=== PATIENT | female | born 1970 | race Caucasian/White ===

== ENCOUNTER → 2017-05-31 | Outpatient (CLI) | payer BC | END | disposition home or self-care (01) | LOC: C.PAPS 12:47 | PROVIDERS: ATTEND Family Medicine | DX: Z12.72 Encounter for screening for malignant neoplasm of vagina (principal) ==

== ENCOUNTER → 2017-06-02 | Outpatient (CLI) | payer BC ==
--- NOTE | 2017-06-02 14:23 | DIAGNOSTIC IMAGING REPORT ---
SOFT TISSUE NECK ULTRASONOGRAPHY CLINICAL HISTORY: ENLARGED LYMPH NODES COMPARISON STUDY: No previous studies for comparison. FINDINGS: There is a 6 mm cyst versus hypoechoic lymph node superior to the right lobe of the thyroid. There are small architectural unremarkable cervical lymph nodes identified. IMPRESSION: 1. 6 mm cyst versus hypoechoic lymph node superior to the right lobe of the thyroid 2. Additional normal sized architecturally normal cervical lymph nodes were visualized Electronically signed by: Dwayne Cintron M.D. 06/02/2017 2:22 PM Dictated Date/Time: 06/02/2017 2:20 PM
== END | disposition home or self-care (01) ==
LOC: C.ULTR 12:13
PROVIDERS: ATTEND Family Medicine
DX: R59.0 Localized enlarged lymph nodes (principal)

== ENCOUNTER → 2017-06-12 | Outpatient (CLI) | payer BC | END | disposition home or self-care (01) | LOC: C.PAPS 12:12 | PROVIDERS: ATTEND Family Medicine | DX: Z01.419 Encounter for gynecological examination (general) (routine) without abnormal findings (principal) ==

== ENCOUNTER → 2017-07-26 | Outpatient (CLI) | payer BC ==
--- NOTE | 2017-07-26 14:25 | MAMMOGRAPHY REPORT ---
BILATERAL DIGITAL DIAGNOSTIC MAMMOGRAM TOMOSYNTHESIS WITH CAD AND TARGETED BILATERAL ULTRASOUND: 07/03 CLINICAL HISTORY: 47-year-old woman presents after recent clinical breast exam. She notes her doctor may have felt a lump in the lateral right breast. The patient also reports tenderness inferiorly in both breasts that is cyclical. No skin erythema or nipple discharge. No family history of breast c ancer. TECHNIQUE: Bilateral breast tomosynthesis in addition to standard 2D mammography was performed. Curr ent study was also evaluated with a Computer Aided Detection (CAD) system. COMPARISON: Comparison is made to exam dated: 04/03/2014 mammogram. BREAST COMPOSITION: The tissue of both breasts is heterogeneously dense, which may obscure small mas ses. FINDINGS: Triangular shaped radiodense markers were placed on the skin of the inferior aspect of each breast, denoting the areas of pain pointed out by the patient. There is a possible partially circum scribed lobulated 10 mm mass in the inferior middle one third of the left breast on the MLO view lobu lated contour of possible masses are also seen in the lateral right breast on the tomosynthesis image s. There is no focal area of architectural distortion, spiculated or irregular mass or suspicious mi crocalcifications. Targeted ultrasound was performed in each breast with particular attention to the areas of pain point ed out by the patient, the inferior left breast and lateral right breast. In the 6:00 periareolar le ft breast, there is a lobulated cyst versus abutting cysts with thin internal nonvascular septation m easuring 12.7 x 4.2 x 10.2 mm in conglomerate. This likely correlates with the possible mass seen in feriorly on the left MLO view and is benign. In the area of pain described by the patient in the lef t 5:00 breast, 3 cm from the nipple, there is no evidence of a discrete solid or cystic mass. Incide ntal note is made of another smaller cyst with internal nonvascular septation in the 4:00 left breast , 3 cm from the nipple, measuring 5.6 x 2.4 x 6.0 mm. In the right breast in the area of pain pointed out by the patient within the 6:00 axis, there is no evidence of a suspicious solid or cystic mass. Throughout the lateral right breast and numerous anec hoic cysts are identified. The largest anechoic benign supple cyst is seen in the 11:00 right breast , 2 cm from the nipple, measuring 13.4 x 10.0 x 3.9 mm. Another lobulated cyst with thin internal no nvascular septations is seen in the 9:00 right breast, 4 cm from the nipple, measuring 10.4 x 3.9 x 1 0.1 mm. Multiple smaller cysts are scattered throughout the 10:00 axis. No suspicious solid masses identified. IMPRESSION: ACR BI-RADS CATEGORY 2: BENIGN, TARGETED ULTRASOUND ACR BI-RADS CATEGORY 2: BENIGN 1. There is no suspicious mammographic or targeted sonographic abnormality in the lateral right [address] to correlate with the palpable abnormality identified by the patient's provider. Therefore, clini josiane follow-up is recommended as biopsy of a clinically suspicious mass should not be precluded by neg ative imaging. 2. No suspicious mammographic or sonographic abnormality in the areas of pain pointed out by the pat ient. Clinical follow-up is also recommended for these areas. 3. There are possible partially circumscribed and obscured masses in both breasts, particularly in t he inferior left breast and lateral right breast, which correlate with benign cysts on ultrasound. T hese findings are compatible with fibrocystic changes. There is no mammographic or targeted sonograp hic evidence of malignancy. Recommend routine screening in 1 year. These results and recommendations were discussed with the patient at the time of the exam. Approximately 10% of breast cancers are not detected with mammography. A negative mammographic report should not delay biopsy if a clinically suggestive mass is present. Zahra Taylor M.D. ay/:07/26/2017 10:30:01 Cad Manager: Shruthi Sofia, [facility] letter sent: Normal 1/2 BI-RADS Code: ACR BI-RADS Category 2: Benign Ultrasound BI-RADS: ACR BI-RADS Category 2: Benign
== END | disposition home or self-care (01) ==
LOC: C.MAMM 08:35
PROVIDERS: ATTEND Family Medicine
DX: N64.4 Mastodynia (principal); N63.10 Unspecified lump in the right breast, unspecified quadrant